=== PATIENT | female | born 1955 | race Caucasian/White ===

== ENCOUNTER 2018-05-12 00:11 | Emergency (ER) | payer BC ==
[2018-05-12] MEDS ORDERED: Sodium Chloride 0.9% 1,000 ML IV ONE (00:35)
[2018-05-12] MEDS ORDERED: Sodium Chloride 0.9% 10 ML Syringe FLUSH PRN (00:35)
[2018-05-12] MEDS ORDERED: Ketorolac 30 MG/ML SDV IVPUSH ONE (00:35)
[2018-05-12] MEDS ORDERED: Sodium Chloride 0.9% 2.5 ML Syringe FLUSH PRN (00:35)
--- NOTE | 2018-05-12 00:38 | EDM.PDOC ---
ED HPI GENERAL MEDICAL PROBLEM - General Chief Complaint: Genitourinary Problem Stated Complaint: POSSIBLE KIDNEY STONE Time Seen by Provider: 05/12/18 00:24 - History of Present Illness INITIAL COMMENTS - FREE TEXT/NARRATIVE: HISTORY AND PHYSICAL: History of present illness: The patient is a 62-year-old female who has a history of 3 or 4 prior kidney stones the last one many years ago who presents with sudden onset of left pain radiating to left lower quadrant that started approximately an hour and a half ago. The patient says this feels like a kidney stone and she has had no fevers chills nausea or vomiting. She had a normal bowel movement yesterday and had a normal day overall without any strenuous activity or trauma. She says she has no dysuria frequency or hematuria and no flank pain per se. She took an aspirin at home when she felt like she got very chilly but she did not take her temperature at that time and those symptoms have resolved with aspirin but she still has pain which she rates as a 4/10. In the past with her kidney stones and she has always passed them spontaneously and has never had surgery and she is a established patient of Dr. Stinson. No midline back pain no numbness tingling or weakness in her lower extremities Review of systems: As per history of present illness and below otherwise all systems reviewed and negative. Past medical history: As per history of present illness and as reviewed below otherwise noncontributory. Surgical history: As per history of present illness and as reviewed below otherwise noncontributory. Social history: No reported history of drug or alcohol abuse. Family history: As per history of present illness and as reviewed below otherwise noncontributory. Physical exam: General: Well-developed well-nourished mildly overweight female who is nontoxic and vital signs are noted by me. She moves easily in the ED without distress. HEENT: Atraumatic, normocephalic, pupils reactive, negative for conjunctival pallor or scleral icterus, mucous membranes moist, throat clear, neck supple, nontender, trachea midline. Lungs: Clear to auscultation, breath sounds equal bilaterally, chest nontender. Heart: S1S2, regula rate and rhythm no overt murmursr Abdomen: Soft, nondistended, nontender. Negative for masses or hepatosplenomegaly. Negative for costovertebral tenderness.On palpation I cannot reproduce the pain and bowel sounds are slightly hypoactive. There is no tympany on percussion Pelvis: Stable nontender. Genitourinary: Deferred. Rectal: Deferred. Extremities: Atraumatic, . Neurovascular unremarkable.Full range of motion without defects or deficits and no pedal edema Neuro: Awake, alert, oriented. Cranial nerves II through XII unremarkable. Cerebellum unremarkable. Motor and sensory unremarkable throughout. Exam nonfocal. Diagnostics: UA with reflex culture CBC CMP amylase lipase CT scan of the abdomen and pelvis Therapeutics: IV fluids Toradol Patient refused the IV placement and the IV fluids and meds so I will give her Toradol IM Flomax Cipro urine strainers Patient is aware of all testing results including the multiple kidney stones and the larger one on the left side and she says she is pain-free. I will give her prescriptions for Flomax Toradol [place] and Cipro and refer her to Dr. Stinson. Impression: Kidney stones/left ureteral lithiasis Definitive disposition and diagnosis as appropriate pending reevaluation and review of above. back/abdomen Pain Score (Numeric/FACES): 4 - Related Data Allergies Allergy/AdvReac Type Severity Reaction Status Date / Time Sulfa (Sulfonamide Allergy Vomiting Verified 05/12/18 00:28 Antibiotics) Home Meds: Home Meds Atenolol 50 mg PO ASDIRECTED 05/12/18 [History] Levothyroxine [Synthroid] 88 mcg PO ACBREAKFAST 05/12/18 [History] ED ROS GENERAL - Review of Systems Review Of Systems: ROS reveals no pertinent complaints other than HPI. ED EXAM, GENERAL - Physical Exam Exam: See Below (See dictation) Course - Vital Signs Last Recorded V/S: Last Vital Signs Temp 36.6 C 05/12/18 00:29 Pulse 62 05/12/18 00:29 Resp 18 05/12/18 00:29 BP 161/88 H 05/12/18 00:29 Pulse Ox 96 05/12/18 00:29 - Orders/Labs/Meds Orders: Active Orders 24 hr Category Date Time Status Communication Order [RC] STAT Care 05/12/18 02:28 Ordered CULTURE URINE [RM] Stat Lab 05/12/18 01:00 Received Sodium Chloride 0.9% [Saline Flush] Med 05/12/18 00:35 Active 10 ml FLUSH ASDIRECTED PRN Sodium Chloride 0.9% [Saline Flush] Med 05/12/18 00:35 Active 2.5 ml FLUSH ASDIRECTED PRN Saline Lock Insert [OM.PC] Stat Oth 05/12/18 00:35 Ordered Medication Orders Sodium Chloride (Saline Flush) 10 ml FLUSH ASDIRECTED PRN PRN Reason: Keep Vein Open Sodium Chloride (Saline Flush) 2.5 ml FLUSH ASDIRECTED PRN PRN Reason: Keep Vein Open Labs: Laboratory Tests 05/12/18 05/12/18 05/12/18 Range/Units 01:00 01:05 01:05 WBC 8.81 (4.0-11.0) K/uL RBC 4.32 (4.30-5.90) M/uL Hgb 13.1 (12.0-16.0) g/dL Hct 39.3 (36.0-46.0) % MCV 91.0 (80.0-98.0) fL MCH 30.3 (27.0-32.0) pg MCHC 33.3 (31.0-37.0) g/dL RDW Std Deviation 43.6 (28.0-62.0) fl RDW Coeff of [place] 13 (11.0-15.0) % Plt Count 257 (150-400) K/uL MPV 9.80 (7.40-12.00) fL Neut % (Auto) 68.1 (48.0-80.0) % Lymph % (Auto) 23.2 (16.0-40.0) % [place] % (Auto) 5.4 (0.0-15.0) % Eos % (Auto) 3.0 (0.0-7.0) % Baso % (Auto) 0.3 (0.0-1.5) % Neut # (Auto) 6.0 H (1.4-5.7) K/uL Lymph # (Auto) 2.0 (0.6-2.4) K/uL [place] # (Auto) 0.5 (0.0-0.8) K/uL Eos # (Auto) 0.3 (0.0-0.7) K/uL Baso # (Auto) 0.0 (0.0-0.1) K/uL Nucleated RBC % 0.0 /100WBC Nucleated RBCs # 0 K/uL Sodium 141 (136-145) mmol/L Potassium 4.3 (3.5-5.1) mmol/L Chloride 105 (98-107) mmol/L Carbon Dioxide 28.3 (21.0-32.0) mmol/L BUN 20 H (7.0-18.0) mg/dL Creatinine 1.2 H (0.6-1.0) mg/dL Est Cr Clr Drug Dosing 42.62 mL/min Estimated GFR (MDRD) 45.2 ml/min Glucose 145 H (74-106) mg/dL Calcium 9.2 (8.5-10.1) mg/dL Total Bilirubin 0.5 (0.2-1.0) mg/dL AST 21 (15-37) IU/L ALT 41 (14-63) IU/L Alkaline Phosphatase 78 (46-116) U/L Total Protein 7.0 (6.4-8.2) g/dL Albumin 3.5 (3.4-5.0) g/dL Globulin 3.5 (2.6-4.0) g/dL Albumin/Globulin Ratio 1.0 (0.9-1.6) Amylase 38 (25-115) U/L Lipase 136 (73-393) U/L Urine Color YELLOW Urine Appearance CLOUDY Urine pH 6.0 (5.0-8.0) Ur Specific [place] 1.015 (1.001-1.035) Urine Protein TRACE H (NEGATIVE) mg/dL Urine Glucose (UA) NEGATIVE (NEGATIVE) mg/dL Urine Ketones NEGATIVE (NEGATIVE) mg/dL Urine Occult Blood LARGE H (NEGATIVE) Urine Nitrite NEGATIVE (NEGATIVE) Urine Bilirubin NEGATIVE (NEGATIVE) Urine Urobilinogen 0.2 (<2.0) EU/dL Ur Leukocyte Esterase TRACE H (NEGATIVE) Urine RBC 75-80 (0-2/HPF) Urine WBC 1-3 (0-5/HPF) Ur Epithelial Cells OCCASIONAL (NONE-FEW) Urine Bacteria RARE (NEGATIVE) Urine Mucus LIGHT (NONE-MOD) Meds: Medications Generic Name Dose Route Start Last Admin Trade Name Freq PRN Reason Stop Dose Admin Sodium Chloride 10 ml 05/12/18 00:35 Saline Flush FLUSH ASDIRECTED PRN Keep Vein Open Sodium Chloride 2.5 ml 05/12/18 00:35 Saline Flush FLUSH ASDIRECTED PRN Keep Vein Open Discontinued Medications Generic Name Dose Route Start Last Admin Trade Name Anna PRN Reason Stop Dose Admin Ciprofloxacin 500 mg 05/12/18 02:28 Ciprofloxacin Hcl PO 05/12/18 02:29 ONETIME ONE Sodium Chloride 1,000 mls @ 999 mls/hr 05/12/18 00:35 05/12/18 01:06 Normal Saline IV 05/12/18 00:54 Not Given STAT ONE Ketorolac Tromethamine 30 mg 05/12/18 00:35 05/12/18 01:06 Toradol IVPUSH 05/12/18 00:54 Not Given ONETIME ONE Ketorolac Tromethamine 60 mg 05/12/18 00:55 05/12/18 01:03 Toradol IM 05/12/18 00:56 60 mg ONETIME ONE Administration Tamsulosin HCl 0.4 mg 05/12/18 02:28 Flomax PO 05/12/18 02:29 ONETIME ONE Departure - Departure Time of Disposition: 02:30 Disposition: Home, Self-Care 01 Condition: Good Clinical Impression: Kidney stone - Discharge Information Referrals: PCP,None [Primary Care Provider] - Forms: ED Department Discharge Additional Instructions: The following information is given to patients seen in the emergency department who are being discharged to home. This information is to outline your options for follow-up care. We provide all patients seen in our emergency department with a follow-up referral. The need for follow-up, as well as the timing and circumstances, are variable depending upon the specifics of your emergency department visit. If you don't have a primary care physician on staff, we will provide you with a referral. We always advise you to contact your personal physician following an emergency department visit to inform them of the circumstance of the visit and for follow-up with them and/or the need for any referrals to a consulting specialist. The emergency department will also refer you to a specialist when appropriate. This referral assures that you have the opportunity for followup care with a specialist. All of these measure are taken in an effort to provide you with optimal care, which includes your followup. Under all circumstances we always encourage you to contact your private physician who remains a resource for coordinating your care. When calling for followup care, please make the office aware that this follow-up is from your recent emergency room visit. If for any reason you are refused follow-up, please contact the [facility] emergency department at and ask to speak to the emergency department charge nurse. [facility] [address] [place] [address] Stinson later this morning and schedule a follow-up appointment. Push hydration and use all medications as prescribed. Return to ER as needed and as discussed. Continue to strain your urine looking for the stone - My Orders Last 24 Hours: My Active Orders 05/12/18 00:35 Sodium Chloride 0.9% [Saline Flush] 10 ml FLUSH ASDIRECTED PRN Sodium Chloride 0.9% [Saline Flush] 2.5 ml FLUSH ASDIRECTED PRN Saline Lock Insert [OM.PC] Stat 05/12/18 01:00 CULTURE URINE [RM] Stat 05/12/18 02:28 Communication Order [RC] STAT - Assessment/Plan Last 24 Hours: My Active Orders 05/12/18 00:35 Sodium Chloride 0.9% [Saline Flush] 10 ml FLUSH ASDIRECTED PRN Sodium Chloride 0.9% [Saline Flush] 2.5 ml FLUSH ASDIRECTED PRN Saline Lock Insert [OM.PC] Stat 05/12/18 01:00 CULTURE URINE [RM] Stat 05/12/18 02:28 Communication Order [RC] STAT
[2018-05-12] MEDS ORDERED: Ketorolac 60 MG/2 ML SDV IM ONE (00:55)
--- NOTE | 2018-05-12 02:11 | CT ---
INDICATION: Abdominal pain TECHNIQUE: CT abdomen and pelvis without contrast. COMPARISON: None FINDINGS: Lower chest: Small hiatal hernia. Liver: Subcentimeter calcification in the right hepatic lobe. Spleen: Unremarkable. Pancreas: Unremarkable. Gallbladder and bile ducts: Unremarkable. Adrenal glands: Unremarkable. Kidneys: There is a 5 mm stone in the distal left ureter with mild left hydronephrosis and hydroureter. Multiple additional stone seen in the left kidney measuring up to 5 mm in diameter. There is also a 2 mm stone in the distal right ureter with mild right hydronephrosis and hydroureter. Additional stones seen in the right kidney measure up to 1.1 cm in diameter. 9 mm cyst on the lateral aspect medial aspect of the right upper renal pole. GI tract: Minimal colonic diverticulosis Vascular structures: Unremarkable. Lymph nodes: Unremarkable. Miscellaneous: Unremarkable. No free air or significant free fluid. Pelvic Organs: Status post hysterectomy. Bones: Unremarkable for age. IMPRESSION: Obstructing 5 mm stone in the distal left ureter with mild left hydronephrosis and hydroureter. Obstructing 2 mm stone in the distal right ureter with mild right hydronephrosis and hydroureter. Additional renal stones seen bilaterally, as described above. Small hiatal hernia. Status post hysterectomy. Please note that all CT scans at this facility use dose modulation, iterative reconstruction, and/or weight-based dosing when appropriate to reduce radiation dose to as low as reasonably achievable. Dictated by Izzy Christine MD @ May 12 2018 2:10AM Signed by Dr. Izzy Christine @ May 12 2018 2:10AM
[2018-05-12] MEDS ORDERED: Ciprofloxacin 500 MG Tab PO ONE (02:28)
[2018-05-12] MEDS ORDERED: Tamsulosin 0.4 MG Cap.ER PO ONE (02:28)
== END 2018-05-12 02:46 | disposition home or self-care (01) ==
LOC: MW.ED 00:11
DX: N20.2 Calculus of kidney with calculus of ureter (principal); Z88.2 Allergy status to sulfonamides
CPT/HCPCS: 36415; 74176; 80053; 81001; 82150; 83690; 85025; 87086; 96372; 99284; A9270; J1885